=== PATIENT | male | born 1955 | race Caucasian/White ===

== ENCOUNTER 2017-07-16 16:33 | Inpatient (IN) | payer OTHER ==
[~2017-07-16 16:33] MED LIST: Iopamidol 370 76% 100 ML VIAL ONE
[2017-07-16] MEDS ORDERED: Calcium Chloride 1 GM/10 ML Abboject SYRINGE ONE (17:00)
[2017-07-16] MEDS ORDERED: Magnesium 5 GM/10 ML Abboject SYRINGE ONE (17:00)
[2017-07-16] MEDS ORDERED: Sodium Bicarb 50 MEQ/50 ML Abboject 8.4% SYRINGE ONE ×3 (17:00→20:00)
[2017-07-16] MEDS ORDERED: Atropine Sulfate 1 mg/10 ml Syringe ONE ×2 (17:00→18:00)
[2017-07-16] MEDS ORDERED: EPINEPHrine 1 MG/10 ML Abboject SYRINGE ONE ×3 (17:00→20:00)
[2017-07-16] MEDS ORDERED: Sodium Bicarbonate 2.5 MEQ/5 ML VIAL ONE (17:05)
[2017-07-16 17:14] LABS: Hemoglobin 17.6 g/dL (14.0-18.0); Mean Corpuscular HGB CONC 32.9 g/dL (32.0-36.0); Mean Corpuscular Hemoglobin 31.3 pg (27.0-31.0); Mean Corpuscular Volume 95.1 fl (80.0-94.0); RBC Distribution Width 11.5 % (11.5-14.5); Red Blood Cell (RBC) Count 5.62 mill/uL (4.70-6.10); White Blood Cell (WBC) Count 16.6 thou/uL (4.8-10.8)
[2017-07-16 17:15] LABS: ALT (SGPT) 33 U/L (8-55); AST (SGOT) 39 U/L (5-34); Albumin 3.9 g/dL (3.5-5.0); Alkaline Phosphatase 133 U/L (40-150); Anion Gap 19 mmol/L (10-20); BUN (Urea Nitrogen) 22 mg/dL (8.4-25.7); Bilirubin, Total 0.3 mg/dL (0.2-1.2); CK (CPK) 194 U/L (30-200); Calc. Creatinine Clearance 0 mL/min (70-130); Calcium 9.2 mg/dL (7.8-10.44); Carbon Dioxide 17 mmol/L (22-29); Chloride 107 mmol/L (98-107); Estimated GFR-MDRD 50; Globulin 3.1 g/dL (2.4-3.5); Glucose 268 mg/dL (70-105); Potassium 3.4 mmol/L (3.5-5.1); Sodium 140 mmol/L (136-145)
[2017-07-16 17:18] LABS: CKMB 5.5 ng/mL (0-6.6)
[2017-07-16] MEDS ORDERED: ISOVUE-370 76%-LOCM 1 ML ONE (17:21)
[2017-07-16 17:31] LABS: #Basophils 0.2 thou/uL (0.0-0.2); #Eosinphils 0.1 thou/uL (0.0-0.7); #Lymphocytes 4.4 thou/uL (1.20-3.40); #Monocytes 1.5 thou/uL (0.11-0.59); #Neutrophils 10.5 thou/uL (1.40-6.50); %Basophils 0.9 % (0.0-1.0); %Eosinophils 0.6 % (0.0-10.0); %Lymphocytes 26.3 % (21.0-51.0); %Monocytes 8.9 % (0.0-10.0); %Neutrophils 63.2 % (42.0-75.0); Mean Platelet Volume 8.1 fL (7.4-10.4); PLT Morphology Comment Appears Decreased; Platelet Count 94 thou/uL (130-400)
[2017-07-16 17:44] LABS: INR-International Normal Ratio 1.3; PTT 44.4 SEC (22.9-36.1)
[2017-07-16] MEDS ORDERED: EPINEPHrine 1 MG, Admixture Fee 1 EACH in Dextrose 5% in Water 250 ML IVPB SCH (17:45)
[2017-07-16] MEDS ORDERED: Furosemide 100 MG/10 ML VIAL ONE (17:45)
[2017-07-16] MEDS ORDERED: Aggrastat 12.5 MG/250 ML 0 ML ONE (18:00)
[2017-07-16] MEDS ORDERED: Heparin 10,000 UNITS/1 ML VIAL ONE ×2 (18:10→18:18)
[2017-07-16] MEDS ORDERED: Lidocaine 2% PF 100 mg/5 ml Syringe ONE (18:10)
[2017-07-16] MEDS ORDERED: DOPamine 400 MG/D5W 250 ML 250 ML ONE (18:11)
[2017-07-16 18:15] LABS: Actual Bicarbonate (HCO3a) 16.1 mEq/L (22-26); Base Excess (BEa) -13.5 mEq/L (0 (+/-) 2.5); CO2 Tension 50.5 mmHg (35.0-45.0); O2 Tension (PaO2) 52.5 mmHg (80.0-100.0); pH, Arterial 7.12 (7.35-7.45)
[2017-07-16 18:16] LABS: Hematocrit-ABG 54.4 % (42.0-52.0); Hemoglobin (Hb) 18.1 g/dL (14.0-18.0)
[2017-07-16 18:17] LABS: ALV-art Gradient 597.375 (0-20); Puncture Site A LINE
[2017-07-16] MEDS ORDERED: Heparin 25,000 units/D5W 500 ML ONE (18:30)
[2017-07-16] MEDS ORDERED: Lidocaine 1% (PF) 30 ML VIAL ONE (18:54)
--- NOTE | 2017-07-16 19:13 | CT ---
CTA CHEST PULMONARY ARTERIOGRAM WITH 3D VOLUME RENDERING CTA CHEST AND ABDOMEN AND PELVIS CTA AORTOGRAM WITH 3D VOLUME RENDERING 07/16/17 CLINICAL HISTORY: Pain, loss of consciousness, resuscitative efforts have been performed preceding the scan per dianne walker, Kristopher Khan of the Emergency Department. FINDINGS: There is incomplete assessment of the pulmonary arteries due to low density contrast as this exam was attempted to be performed as a CTA aortogram as well as CT pulmonary arteriogram which did not allow for appropriate contrast opacification of each of these vascular systems, simultaneously. The aorta is sufficiently contrast opacified and does not reveal evidence of an acute dissection. No obvious pe riaortic hematoma. No aneurysmal dilatation of imaged aorta is seen. There is scattered vascular dise ase. Fulminant opacification throughout each lung with dense consolidation containing air bronchogram s present. There is incomplete assessment of the solid abdominal organs due to the arteriogram techni que. Subtle hypoattenuation of the left kidney is too small to further characterize. No free air of t he abdomen. Bowel is incompletely evaluated by technique and absence of enteric contrast. There is os seous degenerative change. There is the presence of partially imaged endotracheal and enteric cathete rs. IMPRESSION: 1. No aortic dissection or aneurysm evident. 2. Incomplete evaluation for pulmonary emboli as above. 3. Extensive consolidation throughout each lung containing air bronchograms. Correlate clinicall y to exclude extensive consolidation related to multifocal bilateral pneumonia. Superimposed edema ma y also produce this appearance. Correlate clinically. POS: CECIL
[2017-07-16] MEDS ORDERED: EPINEPHrine 1 MG/ML AMP ONE (19:14)
--- NOTE | 2017-07-16 20:08 | PDOC.EVN ---
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 Request was made for immediate on-call hospitalist notification post completion of catheterization. It appears that the patient immediately coded upon arrival to the ICU from the shellfish processing laborer and after discussion with patient's family, the decision was made for terminal extubation. Despite hospitalist arriving to bedside before official notification of patient exiting shellfish processing laborer, patient passed before formal admission.
--- NOTE | 2017-07-16 21:18 | CON ---
DATE OF CONSULTATION: 07/16/2017 Mr. Wagner is a 61-year-old male. He is in the emergency room and has been coded in the ER. He has been resuscitated. He is emergently going to the cardiac catheterization lab. He has undergone CT angiography. CT angiogram shows diffuse pulmonary edema. There is no aortic dissection. Apparently his presenting complaint was chest discomfort. PAST MEDICAL HISTORY: Unknown. FAMILY HISTORY: Unknown. SOCIAL HISTORY: Unknown. MEDICATIONS: Unknown. There are no inpatients records here. Everything is [facility] in clinic notes with Dr. Christianson, Dr. Isabel and Dr. Martínez. The billing codes include shoulder pain, tendonitis, lipid disorder, diabetes as well as hypertension in the past. PHYSICAL EXAMINATION: GENERAL: He is in sinus rhythm with a rate of 130. Respiratory rate is per mechanical ventilation. He does respond to stimulation. Sclerae is anicteric. LUNGS: Remarkable for diffuse crackles. HEART: Regular rhythm. ABDOMEN: Soft. EXTREMITIES: Without asymmetry. LABORATORY AND X-RAY FINDINGS: He has excoriations on his sternum from CPR. White count 16.6, hemoglobin 17.6, platelets 94,000. Sodium 140, potassium 3.4 , chloride 107, bicarbonate 17, BUN 22, creatinine 1.44, glucose 268, protime 16 , PTT is 44. IMPRESSION: Acute congestive heart failure? associated with massive myocardial infarction. He is tentatively going emergently to the laboratory chemical assistant. He is currently been switched from volume of ventilation to bilevel ventilation, sats 100% with 12 of PEEP of volume ventilation were only 78 to 80. His prognosis for survival is dismal unless Dr. Feng can find something though open up and perhaps assisting with a balloon pump. Critical care time 30 min. [facility] [place] DIVISION[facility]
--- NOTE | 2017-07-16 23:48 | HP ---
DATE OF ADMISSION: 07/16/2017 CHIEF COMPLAINT: Cardiac arrest. HISTORY OF PRESENT ILLNESS: Mr. Wagner is a 61-year-old white gentleman who comes to the hospital via [facility]. He had a syncopal spell and felt lightheaded in the field. He called EMS and when they got to him, his blood pressure was 70/30, they gave him fluids and [facility]. On arrival, he started complaining of crushing midsternal chest pain and eventually went into the wide complex rhythm, had to be intubated and given direct current cardioversions converting him into sinus tachycardia. Cardiology consulted as EKG was concerning for ischemia. On my arrival, the pat ient was being coded; he was having CPR. He went to VT several times and VF a couple of more times. He was coded for total of 30 minutes in the ER. Once we were stabilized because of his history, we took him to a CT scanner, make sure he did not have a dissection which he did not, so we took him dir ectly to the labeling machine operator where he was found to have severe multivessel disease. He had an occluded righ t and 90% left main into the LAD very complex lesion. He actually went into VT, when the catheter en gaged the left main. We decided to put in a balloon pump as he is too unstable for surgery [facility] and taken to the ICU. In the ICU, he actually started code as soon as he got there. We ran the code for about 20-25 more minutes. Family eventually decided to discontinue any further CPR. PAST MEDICAL HISTORY: Per chart review includes, 1. Type 2 diabetes. 2. History of nephrolithiasis with lithotripsy in the past. PAST SURGICAL HISTORY: Biceps tendon repair. SOCIAL HISTORY: No alcohol, tobacco, or drugs. OUTPATIENT MEDICATIONS: Reviewed on previous admissions, we do not have an updated list at that time . FAMILY HISTORY: Per chart reviewed, noncontributory. REVIEW OF SYSTEMS: Unobtainable, as patient is intubated and unresponsive. PHYSICAL EXAMINATION: VITAL SIGNS: Temperature 97.2, pulse 78, respiratory rate 26, satting 82% on 100% FIO2, blood pressu re 53/28 currently. GENERAL: Intubated, unresponsive, and no sedation. LUNGS: Have crackles bilaterally. CARDIOVASCULAR: S1, S2. ABDOMEN: Soft, positive bowel sounds. EXTREMITIES: No edema. SKIN: Mottled. LABORATORY WORK: Reviewed. EKG is reviewed. CT was reviewed. ASSESSMENT AND PLAN: 1. Acute myocardial infarction. 2. Ventricular fibrillation arrest. 3. Severe multivessel coronary artery disease. 4. Severe ischemic left ventricular dysfunction. 5. Type 2 diabetes. PLAN: After a long conversation with family, they decided to make him DNR, stopped chest compression s, balloon pump is still in and we are going to leave this on until the family is ready for us to sto p it. We will continue to support him until he either codes or the family decides to withdraw care. At this time, patient is severely ill and most likely this episode is going to be his demise. Over 2 hours were spent at bedside of critical care for this patient's care.
== END 2017-07-16 20:12 | disposition expired | DRG 271 ==
LOC: ERS 16:33 → CCU 18:49
PROVIDERS: ADMIT Internal Medicine Cardiovascular Disease; ATTEND Internal Medicine Cardiovascular Disease
PROC: 0BH17EZ Insertion of Endotracheal Airway into Trachea, Via Natural or Artificial Opening (ICD-10-PCS; principal; 2017-07-16)
PROC: 5A02210 Assistance with Cardiac Output using Balloon Pump, Continuous (ICD-10-PCS; 2017-07-16)
PROC: 5A1935Z Respiratory Ventilation, Less than 24 Consecutive Hours (ICD-10-PCS; 2017-07-16)
PROC: 5A2204Z Restoration of Cardiac Rhythm, Single (ICD-10-PCS; 2017-07-16)
PROC: B2111ZZ Fluoroscopy of Multiple Coronary Arteries using Low Osmolar Contrast (ICD-10-PCS; 2017-07-16)
PROC: B2151ZZ Fluoroscopy of Left Heart using Low Osmolar Contrast (ICD-10-PCS; 2017-07-16)
DX: I21.A1 Myocardial infarction type 2 (principal); I97.710 Intraoperative cardiac arrest during cardiac surgery; I49.01 Ventricular fibrillation; E11.9 Type 2 diabetes mellitus without complications; I25.119 Atherosclerotic heart disease of native coronary artery with unspecified angina pectoris; Z66 Do not resuscitate; I10 Essential (primary) hypertension
CPT/HCPCS: 31500; 33967; 36415; 51702; 71275; 80053; 82550; 82553; 82805; 84484; 85025; 85610; 85730; 86850; 86900; 86901; 92950; 92960; 93005; 93458; 94760; 96365; 96374; 96375; 96376; C1769; J0171; J0282; J0461; J1265; J1644; J1940; J2001; J2370; J3246; J3475; J7050; J7070